=== PATIENT | female | born 1960 | race Caucasian/White ===

== ENCOUNTER 2017-12-09 10:31 | Inpatient (IN) | payer MEDICARE, MEDICAID ==
--- NOTE | 2017-12-07 12:55 | HP ---
HISTORY OF PRESENT ILLNESS: Ms. Stafford is back in the office after she had a 3-level ACDF. Ms. Janine collins still smokes cigarettes. She has also had a history of carpal tunnel surgery. Today, her issue s in the low back with some radiating leg pain, legs are affected only with prolonged standing and re lieved that comes with sitting. The low back is different any, back extension makes it worse, it is localized in the midline just to the left. Facet injections and facet ablations have not helped. PAST MEDICAL HISTORY: Includes GERD, stents x3, heart attack in 2012, kidney stones in 2013. REVIEW OF SYSTEMS: A 10-point review of systems is complete, is otherwise negative unless stated in the above HPI. PAST SURGICAL HISTORY: Back surgery L5-S1 in 1985 and 1986, ACDF C4 through C7 in 2013. FAMILY HISTORY: Father is at 88 years old. Mother is at 87 years old. SOCIAL HISTORY: The patient lives in [place]. Denies alcohol use. Current smoker, 1 pack a day. MEDICATIONS: Taking, 1. Ibuprofen 200 mg tablet 1 tablet orally q.6 hours. 2. Cyclobenzaprine 10 mg t.i.d. 3. Meloxicam 7.5 mg tablet 1 tablet orally once a day. 4. Neurontin 300 mg capsule 1 capsule 4 times a day. 5. [place] 10/325. 6. Tramadol 50 mg tablet 1 tablet as needed q.6 hours. ALLERGIES: CODEINE. PHYSICAL EXAMINAITON: HEENT: Head is normocephalic, atraumatic. Hearing intact. Moist mucous membranes. Trachea is midl ine. EYES: Pupils are equal and reactive to light. Extraocular muscles are intact. Sclerae is white, no nicteric. CARDIOVASCULAR: The patient has regular rate and rhythm, normal S1, S2 heart sounds. No distal cyan osis or clubbing noted. RESPIRATORY: Patient has bilateral symmetric chest rise. Appears to have no shortness of breath. NEUROLOGIC: Gait and station are normal. Motor exam: There is normal strength in the iliopsoas, qu adriceps, hamstrings, anterior tibialis, extensor hallus longus and gastroc. Sensory exam: There is no dermatomal sensory loss in L1, L2, L3, L4, L5 or S1. IMAGING: MRI and flexion, extension x-rays are at [facility]. MRI shows mild to moderate later al recess disease at L4-L5, L5-S1. There is prior surgery at L4-L5. ASSESSMENT: 1. Spinal stenosis, lumbosacral region. 2. Spinal stenosis, lumbosacral region without neurogenic claudication. 3. Kissing spine, lumbosacral region. PLAN: Dr. Guthrie offered a laminectomy L4 through S1 with removal of spinous processes as well. Informed consent, we discussed the indications, risks, benefits, alternatives, and expected results f rom surgery. The risks discussed included, but are not limited to bleeding, infection, CSF leak, ner ve damage, weakness, cauda equina injury, incontinence, arachnoiditis, paralysis, ventilator dependen ce, wheelchair dependence, loss of vision, cardiopulmonary complications of anesthesia or . Vikash g-term complications discussed, but are not included to spinal instability and future surgery. She u nderstands the risk and is willing to proceed when she is off Plavix for at least 1 week.
[2017-12-08 17:35] VITALS: BMI 26.3
[2017-12-09 11:31] LABS: Hemoglobin 12.8 g/dL (12.0-16.0); Mean Corpuscular HGB CONC 32.9 g/dL (32.0-36.0); Mean Corpuscular Hemoglobin 33.9 pg (27.0-31.0); Mean Platelet Volume 8.2 fL (7.4-10.4); Platelet Count 255 thou/uL (130-400); RBC Distribution Width 12.1 % (11.5-14.5); Red Blood Cell (RBC) Count 3.79 mill/uL (4.20-5.40); White Blood Cell (WBC) Count 7.9 thou/uL (4.8-10.8)
[2017-12-09 11:37] LABS: Prothrombin Time 13.1 SEC (12.0-14.7)
[2017-12-09] MEDS ORDERED: Bupivacaine HCl 0.5%/Epinephrine 1:200,000/PF 30 ml Vial ONE (11:37)
[2017-12-09] MEDS ORDERED: Sodium Chloride 0.9% 20 ML ONE (11:37)
[2017-12-09 11:38] LABS: PTT 29.7 SEC (22.9-36.1)
[2017-12-09] MEDS ORDERED: Thrombin 5000 UNITS/5 ML VIAL ONE (11:38)
[2017-12-09 11:51] LABS: Anion Gap 9 mmol/L (10-20); BUN (Urea Nitrogen) 11 mg/dL (9.8-20.1); Calc. Creatinine Clearance 82 mL/min (70-130); Calcium 9.8 mg/dL (7.8-10.44); Carbon Dioxide 30 mmol/L (22-29); Chloride 107 mmol/L (98-107); Estimated GFR-MDRD 65; Glucose 92 mg/dL (70-105); Potassium 4.2 mmol/L (3.5-5.1); Sodium 142 mmol/L (136-145)
[2017-12-09] MEDS ORDERED: Fentanyl 100 MCG/2 ML VIAL ONE ×3 (11:52→15:50)
[2017-12-09] MEDS ORDERED: CEFAZOLIN/Water 2 GM/20 ML SYRINGE ONE (11:52)
[2017-12-09] MEDS ORDERED: Cyclobenzaprine 10 MG TAB PO PRN (15:14)
[2017-12-09] MEDS ORDERED: Ondansetron HCl/PF 4 MG/2 ML Vial IVP PRN (15:14)
[2017-12-09] MEDS ORDERED: traMADol HCl 50 MG TAB PO PRN (15:14)
[2017-12-09] MEDS ORDERED: Morphine 4 MG/ML VIAL SLOW IVP PRN ×2 (15:14)
[2017-12-09] MEDS ORDERED: Ketorolac Tromethamine 30 MG/ML VIAL ONE (15:45)
[2017-12-09] MEDS ORDERED: Dexamethasone 20 MG/5 ML VIAL ONE (15:45)
[2017-12-09] MEDS ORDERED: PHENYLEPHRINE-NS 100 MCG/ML 10 ML SYRINGE ONE (15:45)
[2017-12-09] MEDS ORDERED: Lidocaine 1% PF 5 ML VIAL ONE (15:45)
[2017-12-09] MEDS ORDERED: ePHEDrine/0.9% NaCl/PF SYRINGE 50 mg/10 ml ONE (15:45)
[2017-12-09] MEDS ORDERED: Glycopyrrolate 0.2 MG/ML 5 ML SYRINGE ONE (15:45)
[2017-12-09] MEDS ORDERED: Ondansetron HCl/PF 4 MG/2 ML Vial ONE (15:45)
[2017-12-09] MEDS ORDERED: PROPOFOL 200 MG/20 ML VIAL ONE (15:45)
--- NOTE | 2017-12-09 16:13 | OP ---
DATE OF SURGERY: 12/09/2017 SURGEON: Roc Guthrie M.D. POLISHER ALUMINUM: Mratin Cook PA-C. PREOPERATIVE INDICATION: Treat pain, prevent neurological deterioration. 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 POSTOPERATIVE DIAGNOSIS: Recurrent lumbar stenosis with neurogenic claudication, Baastrup's disease with pain on the spinal extension. OPERATIVE PROCEDURE: Redo lumbar decompressive laminectomy, medial facetectomy, foraminotomy at L4-5 and L5-S1, and partial removal of spinous processes L2-L3 and L3-L4. PREOPERATIVE MEDICATION: Ancef 2 grams IV. DRAIN NUMBER: Zero. DRAIN TYPE: None. OPERATIVE DICTATION: The patient was brought to the operating room. General endotracheal anesthesia was induced, and the patient was positioned prone on gel-filled chest rolls and the lateral fluoro r adiograph was used to confirm the previous incision would give us access to the lumbosacral spine. T he lumbar skin was sterilely prepped and draped. We opened our incision with a 10-blade knife and co ntrolled bleeding with bipolar and monopolar cautery. We used monopolar cautery to dissect through s ubcutaneous tissues to the thoracodorsal fascia. We incised the fascia in the midline and reflected the paraspinal muscles off the spinous process and lamina at L3-4 and the sacrum. We dissected throu gh scar tissue from L4 to the sacrum and we widened out that dissection until we were encountering th e facet joints at L4-5 and L5-S1. A self-retaining retractor was placed and a lateral fluoro radiogr aph confirmed the levels upon which we were operating. Preoperative x-ray indicated that she had kis sing spinous processes of L2-3 and L3-4. We removed the inferior portion of the L2 spinous process a nd superior portion of L3 spinous process to ensure those spinous processes were no longer touching. We then removed the entire spinous process of L4. We performed a laminectomy with Kerrison rongeurs at L4 and widened our laminectomy defect until we were flushed with the pedicles. We then used cure ttes to free scar tissue from the lateral confines of the spinal canal. Scar tissue removed. We enc ountered a remnant of the L5 lamina and removed that as well. We continued freeing the scar tissue o berta the foramina at L4-5 bilaterally. Some scar tissue was densely adherent to the dura and a small dural opening was encountered with arachnoid coming through it, but no significant CSF leak. We cont inued dissecting down the lateral recesses to encounter the L5-S1 facets, identified the S1 nerve marisol ts and decompressed the superior portion of the sacrum, the S1 nerve roots. We performed foraminotom ies of the exiting L5 and L4 nerve roots. We irrigated copiously with bacitracin irrigation. We bro ught the operating microscope into the field. Under microscopic magnification using microsurgical techniques, we carefully dissected scar tissue ar ound arachnoid protrusion. We identified a soft dura circumferentially after careful dissection of s car tissue and then we closed the dural opening with a 6-0 Prolene using microsurgical techniques. W ith anesthesia administered Valsalva, there was no CSF egress noted. We irrigated copiously with luz elena itracin irrigation. We waxed the bone edges. We controlled epidural bleeding with gentle bipolar ca utery. We reinforced our dural closure with DuraSeal tissue sealant and we closed the wound in anato luan layers after applied vancomycin powder. We applied a sterile dressing. This is a clean case and no contamination.
[2017-12-09] MEDS: Sodium Chloride 0.9% 1,000 ML IV SCH (16:43)
[2017-12-09] MEDS ORDERED: Nicotine 21 MG PATCH TOP SCH (18:00)
[2017-12-09] MEDS ORDERED: Simvastatin 20 MG TAB PO SCH (21:00)
[2017-12-09] MEDS ORDERED: Gabapentin 300 MG CAP PO SCH (21:00)
[2017-12-09] MEDS ORDERED: Pravastatin Sodium 20 MG TAB PO SCH (21:00)
[2017-12-09] MEDS: CEFAZOLIN/Water 2 GM/20 ML SYRINGE SLOW IVP SCH (21:04)
[2017-12-09] MEDS: Cyclobenzaprine 10 MG TAB PO SCH (21:05)
[2017-12-09] MEDS: Bupropion 150 MG SR TAB PO SCH (21:06)
[2017-12-09] MEDS: Methocarbamol 500 MG TAB PO SCH (21:06)
[2017-12-09] MEDS: traMADol HCl 50 MG TAB PO PRN (21:12)
[2017-12-09] MEDS: AMOXicillin 250 MG CAP PO SCH (21:27)
[2017-12-10] MEDS: Sodium Chloride 0.9% 1,000 ML IV SCH (04:57)
[2017-12-10] MEDS: CEFAZOLIN/Water 2 GM/20 ML SYRINGE SLOW IVP SCH (04:58)
[2017-12-10] MEDS: AMOXicillin 250 MG CAP PO SCH (05:00)
[2017-12-10] MEDS: traMADol HCl 50 MG TAB PO PRN ×2 (05:02→12:14)
--- NOTE | 2017-12-10 07:26 | PRG ---
DATE OF SERVICE: 12/10/2017 Ms. Stafford is 1 day out from a redo decompression of the lower lumbar segments from L4-S1. She had significant scar tissue at the time of surgery and 1 small durotomy was encountered which was closed with a 6-0 Prolene. There has been no low pressure headaches overnight. She did have some left leg pain that is completely resolved by this morning. She is happy she had the operation. We will get Ms. Stafford mobilized this morning. We will ask her to stand and walk to dress, to go to the bathroom, to eat and if she is safe for all her activities of daily living she can be discharged this morning. We went over home going activity restrictions and wound care. Follow up arrangements have been made.
[2017-12-10 08:15] VITALS: TEMP 97.8
[2017-12-10] MEDS ORDERED: Multivit, Therapeutic 1 TAB PO SCH (09:00)
[2017-12-10] MEDS ORDERED: Nicotine 21 MG PATCH TOP SCH (09:00)
[2017-12-10] MEDS: Cyclobenzaprine 10 MG TAB PO SCH ×2 (09:08→13:42)
[2017-12-10] MEDS: Methocarbamol 500 MG TAB PO SCH (10:23)
[2017-12-10] MEDS: Bupropion 150 MG SR TAB PO SCH (10:24)
[2017-12-10 11:27] VITALS: BP 129/60
--- NOTE | 2018-01-03 11:28 | EKG ---
Test Reason : PREOP Blood Pressure : / mmHG Vent. Rate : 066 BPM Atrial Rate : 066 BPM P-R Int : 160 ms QRS Dur : 080 ms QT Int : 392 ms P-R-T Axes : 077 063 052 degrees QTc Int : 410 ms Normal sinus rhythm Normal ECG When compared with ECG of 29-MAR-2014 14:40, No significant change was found Confirmed by DANIAL REGAN M.D. ([id number]) on 01/03/2018 11:28:35 AM Referred By: JOSSIE Confirmed By:DANIAL REGAN M.D.
== END 2017-12-10 13:45 | disposition home or self-care (01) | DRG 519 ==
LOC: SDC 10:31 → SURG B 16:28
PROVIDERS: ADMIT Neurological Surgery; ATTEND Neurological Surgery
PROC: 01NB0ZZ Release Lumbar Nerve, Open Approach (ICD-10-PCS; principal; 2017-12-09)
PROC: 00UT0JZ Supplement Spinal Meninges with Synthetic Substitute, Open Approach (ICD-10-PCS; 2017-12-09)
PROC: 0QB00ZZ Excision of Lumbar Vertebra, Open Approach (ICD-10-PCS; 2017-12-09)
DX: M48.062 Spinal stenosis, lumbar region with neurogenic claudication (principal); G97.41 Accidental puncture or laceration of dura during a procedure; G96.12 Meningeal adhesions (cerebral) (spinal); F17.210 Nicotine dependence, cigarettes, uncomplicated; M48.07 Spinal stenosis, lumbosacral region; M48.26 Kissing spine, lumbar region; M48.27 Kissing spine, lumbosacral region; K21.9 Gastro-esophageal reflux disease without esophagitis; Z98.1 Arthrodesis status; Z95.5 Presence of coronary angioplasty implant and graft; I25.2 Old myocardial infarction
CPT/HCPCS: 36415; 76001; 80048; 85027; 85610; 85730; 93005; 93010; A4216; J0131; J0670; J1100; J1885; J2001; J2270; J2405; J2704; J3010; J3370; J3490

== ENCOUNTER 2019-01-26 17:13 | Emergency (ER) | payer MEDICARE, MEDICAID ==
--- NOTE | 2019-01-26 17:59 | RAD ---
AP view chest. HISTORY: Dyspnea AP view chest obtained on 01/26/2019. Comparison made to previous exam from 01/30/2013 AP view chest demonstrates right shoulder and neck surgical changes. The lungs are well aerated. No evidence of active intrathoracic disease seen. No evidence of effusion s, pneumonia or pneumothorax seen IMPRESSION: unremarkable AP view chest.
[2019-01-26 18:07] LABS: #Basophils 0.1 thou/uL (0.0-0.2); #Eosinphils 0.2 thou/uL (0.0-0.7); #Lymphocytes 1.4 thou/uL (1.20-3.40); #Monocytes 0.7 thou/uL (0.11-0.59); #Neutrophils 11.9 thou/uL (1.40-6.50); %Basophils 0.4 % (0.0-1.0); %Eosinophils 1.3 % (0.0-10.0); %Lymphocytes 9.5 % (21.0-51.0); %Neutrophils 83.9 % (42.0-75.0); Hemoglobin 13.1 g/dL (12.0-16.0); Mean Corpuscular Hemoglobin 32.9 pg (27.0-31.0); Mean Corpuscular Volume 99.7 fL (78.0-98.0); Mean Platelet Volume 8.4 fL (7.4-10.4); Platelet Count 280 thou/uL (130-400); RBC Distribution Width 12.2 % (11.5-14.5); Red Blood Cell (RBC) Count 3.98 mill/uL (4.20-5.40); White Blood Cell (WBC) Count 14.2 thou/uL (4.8-10.8)
[2019-01-26 18:29] LABS: ALT (SGPT) 22 U/L (8-55); AST (SGOT) 11 U/L (5-34); Albumin 4.4 g/dL (3.5-5.0); Alkaline Phosphatase 107 U/L (40-150); Anion Gap 14 mmol/L (10-20); BUN (Urea Nitrogen) 21 mg/dL (9.8-20.1); Bilirubin, Total 0.5 mg/dL (0.2-1.2); Calc. Creatinine Clearance 0 mL/min (70-130); Calcium 10.4 mg/dL (7.8-10.44); Carbon Dioxide 25 mmol/L (22-29); Chloride 101 mmol/L (98-107); Estimated GFR-MDRD 47; Globulin 2.3 g/dL (2.4-3.5); Glucose 114 mg/dL (70-105); Potassium 4.1 mmol/L (3.5-5.1); Protein, Total 6.7 g/dL (6.0-8.3); Sodium 136 mmol/L (136-145)
--- NOTE | 2019-01-26 19:53 | CT ---
Contrast-enhanced CTA chest. [place] history: Elevated d-dimer and dyspnea. Contrast-enhanced CTA of the chest obtained. 2-D and 3-D reconstruction images performed. CTA images demonstrate coronary artery calcifications. No definite evidence of lung parenchymal masses or lesions seen. Some bilateral posterior areas of li hesham atelectasis is present. No evidence of filling defects seen to suggest pulmonary emboli. IMPRESSION: No evidence of pulmonary emboli.
== END 2019-01-26 20:46 | disposition home or self-care (01) ==
LOC: ERS 17:13
DX: E86.0 Dehydration (principal); F41.9 Anxiety disorder, unspecified; F17.210 Nicotine dependence, cigarettes, uncomplicated
CPT/HCPCS: 36415; 71045; 71275; 80053; 84484; 85025; 85379; 93005; 96360

== ENCOUNTER 2023-06-22 05:28 | Inpatient (IN) | payer OTHER, MEDICAID ==
[2023-06-22] MEDS ORDERED: EPINEPHrine 1 MG/ML AMP ONE (06:09)
[2023-06-22] MEDS ORDERED: Vancomycin 1 GM VIAL ONE (06:09)
[2023-06-22] MEDS ORDERED: Thrombin 5000 UNITS/5 ML VIAL ONE (06:09)
[2023-06-22] MEDS ORDERED: Bupivacaine PF 0.5% 30 ML VIAL ONE (06:09)
[2023-06-22] MEDS ORDERED: CEFAZOLIN 2 GM VIAL ONE (06:12)
[2023-06-22] MEDS ORDERED: Sodium Chloride 0.9% 100 ML ONE (06:12)
[2023-06-22] MEDS ORDERED: ePHEDrine Sulfate 50 MG/10 ML VIAL ONE (06:30)
[2023-06-22] MEDS ORDERED: Ondansetron ORAL SOLN. 4 MG/5 ML UDCUP ONE (06:30)
[2023-06-22] MEDS ORDERED: Rocuronium Bromide 10 MG/ML (10ML VIAL) ONE (06:30)
[2023-06-22] MEDS ORDERED: Lidocaine 1% PF 5 ML VIAL ONE (06:30)
[2023-06-22] MEDS ORDERED: PHENYLEPHRINE-NS 100 MCG/ML 10 ML SYRINGE ONE (06:30)
[2023-06-22] MEDS ORDERED: PROPOFOL 200 MG/20 ML VIAL ONE (06:30)
[2023-06-22] MEDS ORDERED: Midazolam HCl 2 mg/2 ml Vial ONE (06:58)
[2023-06-22] MEDS ORDERED: Norepinephrine 4 MG/4 ML VIAL ONE (06:59)
[2023-06-22] MEDS ORDERED: fentaNYL PF 100 MCG/2 ML SYRINGE ONE ×2 (06:59→12:19)
[2023-06-22] MEDS ORDERED: Vasopressin 20 UNITS/ML VIAL ONE (06:59)
[2023-06-22] MEDS ORDERED: Phenylephrine 10 MG/ML VIAL ONE (11:19)
[2023-06-22] MEDS ORDERED: SUGAMMADEX SODIUM 200 MG/2 ML VIAL ONE (12:19)
[2023-06-22] MEDS ORDERED: Rocuronium Bromide 50 MG/5 ML VIAL ONE (13:59)
[2023-06-22] MEDS ORDERED: Bacitracin Zinc Ointment 30 gm TUBE ONE (15:23)
[2023-06-22] MEDS ORDERED: Morphine 2 MG/ML VIAL SLOW IVP PRN (15:31)
[2023-06-22] MEDS ORDERED: Bisacodyl 10 MG SUPP PR PRN (15:31)
[2023-06-22] MEDS ORDERED: diphenhydrAMINE 50 MG/ML VIAL IVP PRN (15:31)
[2023-06-22] MEDS ORDERED: HYDROcodone/Acetaminophen 7.5/325 mg Tablet PO PRN (15:31)
[2023-06-22] MEDS ORDERED: Acetaminophen 325 MG TAB PO PRN (15:31)
[2023-06-22] MEDS ORDERED: Ondansetron PF 4 MG/2 ML Vial IVP PRN (15:31)
[2023-06-22] MEDS ORDERED: Milk Of Magnesia 30 ML UDCUP PO PRN (15:31)
[2023-06-22] MEDS ORDERED: Fentanyl 250 MCG/5 ML VIAL ONE (16:13)
[2023-06-22 16:48] LABS: Hematocrit 30.2 % (36.0-47.0); Hemoglobin 10.2 g/dL (12.0-16.0)
[2023-06-22] MEDS ORDERED: CEFAZOLIN 2 GM in Sodium Chloride 0.9% 100 ML IVPB SCH (17:00)
[2023-06-22] MEDS: HYDROcodone/Acetaminophen 10/325 mg Tablet PO PRN (20:20)
[2023-06-22] MEDS: CEFAZOLIN 2 GM in Sodium Chloride 0.9% 100 ML IVPB SCH (20:22)
[2023-06-22] MEDS: Sodium Chloride 0.9% 1,000 ML IV SCH (20:23)
[2023-06-22] MEDS: tiZANidine HCl 4 MG TAB PO PRN (21:56)
[2023-06-22] MEDS ORDERED: hydrOXYzine 25 MG TAB PO PRN (22:46)
[2023-06-22 23:20] VITALS: BMI 27.6
[2023-06-23] MEDS: CEFAZOLIN 2 GM in Sodium Chloride 0.9% 100 ML IVPB SCH (04:41)
[2023-06-23] MEDS: HYDROcodone/Acetaminophen 10/325 mg Tablet PO PRN ×3 (04:41→23:34)
[2023-06-23] MEDS: Sodium Chloride 0.9% 1,000 ML IV SCH ×2 (06:31→18:00)
[2023-06-23] MEDS: tiZANidine HCl 4 MG TAB PO PRN ×2 (09:52→21:22)
[2023-06-23] MEDS: Aspirin Chewable 81 MG TAB PO SCH (09:53)
[2023-06-23 11:05] LABS: #Monocytes 1.1 thou/uL (0.11-0.59); #Neutrophils 11.1 thou/uL (1.40-6.50); %Basophils 0.1 % (0.0-1.0); %Eosinophils 0.1 % (0.0-10.0); %Lymphocytes 13.5 % (21.0-51.0); %Monocytes 7.4 % (0.0-10.0); Hematocrit 26.8 % (36.0-47.0); Hemoglobin 8.7 g/dL (12.0-16.0); Mean Corpuscular HGB CONC 32.5 g/dL (32.0-36.0); Mean Corpuscular Hemoglobin 32.2 pg (27.0-31.0); Mean Corpuscular Volume 99.3 fl (78.0-98.0); Platelet Count 192 10x3/uL (130-400); RBC Distribution Width 13.1 % (11.5-14.5); White Blood Cell (WBC) Count 14.2 10x3/uL (4.8-10.8)
[2023-06-23 11:34] LABS: Anion Gap 13 mmol/L (10-20); BUN (Urea Nitrogen) 14 mg/dL (9.8-20.1); Calc. Creatinine Clearance 65 mL/min (70-130); Calcium 8.6 mg/dL (7.8-10.44); Carbon Dioxide 26 mmol/L (23-31); Chloride 101 mmol/L (98-107); Estimated GFR 57; Glucose 108 mg/dL (80-115); Potassium 4.2 mmol/L (3.5-5.1); Sodium 136 mmol/L (136-145)
[2023-06-23] MEDS ORDERED: Calcium Carbonate 500 MG ChewTAB PO PRN (12:30)
[2023-06-24] MEDS: HYDROcodone/Acetaminophen 10/325 mg Tablet PO PRN ×3 (05:29→15:51)
[2023-06-24] MEDS: Sodium Chloride 0.9% 1,000 ML IV SCH (07:59)
[2023-06-24] MEDS: tiZANidine HCl 4 MG TAB PO PRN ×3 (09:27→23:42)
[2023-06-24] MEDS: Aspirin Chewable 81 MG TAB PO SCH (09:27)
[2023-06-25] MEDS: Sodium Chloride 0.9% 1,000 ML IV SCH ×2 (01:53→09:48)
[2023-06-25] MEDS: HYDROcodone/Acetaminophen 10/325 mg Tablet PO PRN ×3 (03:47→14:39)
[2023-06-25 06:58] LABS: #Eosinphils 0.2 thou/uL (0.0-0.7); #Monocytes 0.7 thou/uL (0.11-0.59); #Neutrophils 9.2 thou/uL (1.40-6.50); %Basophils 0.3 % (0.0-1.0); %Eosinophils 1.3 % (0.0-10.0); %Lymphocytes 12.3 % (21.0-51.0); %Neutrophils 79.6 % (42.0-75.0); Hematocrit 24.2 % (36.0-47.0); Hemoglobin 8.2 g/dL (12.0-16.0); Mean Corpuscular HGB CONC 33.9 g/dL (32.0-36.0); Mean Corpuscular Hemoglobin 32.8 pg (27.0-31.0); Mean Corpuscular Volume 96.8 fl (78.0-98.0); Mean Platelet Volume 11.3 fL (7.4-10.4); Platelet Count 201 10x3/uL (130-400); White Blood Cell (WBC) Count 11.6 10x3/uL (4.8-10.8)
[2023-06-25] MEDS ORDERED: FLU VACC QS2023(65UP)/MF59C/PF 60 MCG/0.5 ML SYRINGE IM ONE (09:00)
[2023-06-25] MEDS: Aspirin Chewable 81 MG TAB PO SCH (09:38)
[2023-06-25 12:53] VITALS: BP 136/74; TEMP 98.3
[2023-06-25 13:06] LABS: Bacteria/HPF None Seen HPF (None Seen); Bilirubin Negative (Negative); Blood, Urine Negative (Negative); CAUTI Indications for Culture Fever or rigors; Clarity Clear (Clear); Glucose, Urine (Dipstick) Normal (Negative); Ketone, Urine Negative (Negative); Leukocyte Negative Leu/uL (Negative); Nitrite Negative (Negative); Protein, Urine (Dipstick) Negative (Neg-Trace); RBC/HPF 0-3 HPF (0-3); Specific Gravity, Urine 1.013 (1.002-1.036); Squamous Epithelial 0-3 HPF (0-3); Urobilinogen Normal mg/dL (Less than 2); WBC/HPF 0-3 HPF (0-3); pH, Urine 7.5 (5.0-9.0)
[2023-06-25 13:08] LABS: Urine Culture Reflex No No
== END 2023-06-25 14:56 | disposition home or self-care (01) | DRG 454 ==
LOC: SDC 05:28 → SURG B 18:41 → OBSVTOIN 06-25 13:16
PROVIDERS: ADMIT Neurological Surgery; ATTEND Neurological Surgery
PROC: 00NX0ZZ Release Thoracic Spinal Cord, Open Approach (ICD-10-PCS; principal; 2023-06-22)
PROC: 0SG00AJ Fusion of Lumbar Vertebral Joint with Interbody Fusion Device, Posterior Approach, Anterior Column, Open Approach (ICD-10-PCS; 2023-06-22)
PROC: 0SG0071 Fusion of Lumbar Vertebral Joint with Autologous Tissue Substitute, Posterior Approach, Posterior Column, Open Approach (ICD-10-PCS; 2023-06-22)
PROC: 01NB0ZZ Release Lumbar Nerve, Open Approach (ICD-10-PCS; 2023-06-22)
PROC: 01NR0ZZ Release Sacral Nerve, Open Approach (ICD-10-PCS; 2023-06-22)
PROC: 0SB20ZZ Excision of Lumbar Vertebral Disc, Open Approach (ICD-10-PCS; 2023-06-22)
PROC: 0RBB0ZZ Excision of Thoracolumbar Vertebral Disc, Open Approach (ICD-10-PCS; 2023-06-22)
PROC: 0SB40ZZ Excision of Lumbosacral Disc, Open Approach (ICD-10-PCS; 2023-06-22)
PROC: 0SG30AJ Fusion of Lumbosacral Joint with Interbody Fusion Device, Posterior Approach, Anterior Column, Open Approach (ICD-10-PCS; 2023-06-22)
PROC: 3E033XZ Introduction of Vasopressor into Peripheral Vein, Percutaneous Approach (ICD-10-PCS; 2023-06-22)
DX: M48.04 Spinal stenosis, thoracic region (principal); G95.9 Disease of spinal cord, unspecified; M54.16 Radiculopathy, lumbar region; E78.00 Pure hypercholesterolemia, unspecified; G89.29 Other chronic pain; F41.9 Anxiety disorder, unspecified; M43.16 Spondylolisthesis, lumbar region; M48.05 Spinal stenosis, thoracolumbar region; M48.062 Spinal stenosis, lumbar region with neurogenic claudication; M48.07 Spinal stenosis, lumbosacral region; Z95.5 Presence of coronary angioplasty implant and graft; Z98.890 Other specified postprocedural states; Z82.49 Family history of ischemic heart disease and other diseases of the circulatory system; Z83.3 Family history of diabetes mellitus; Z88.5 Allergy status to narcotic agent; Z88.8 Allergy status to other drugs, medicaments and biological substances
CPT/HCPCS: 36415; 36416; 71045; 71046; 80048; 81001; 85014; 85018; 85025; 86850; 86900; 86901; 87086; 90471; 90694; 93970; A4314; C1713; C1889; G0008; J0171; J2250; J2370; J3010; J3370; J3490; J7050; S0020